=== PATIENT | female | born 1985 | race Caucasian/White ===

== ENCOUNTER 2022-06-01 09:25 | Outpatient (CLI) | payer OTHER, SELFPAY | END 2022-06-01 09:26 | disposition home or self-care (01) | LOC: NFLDREF 09:35 | PROVIDERS: Visit Provider Obstetrics & Gynecology | DX: O20.9 Hemorrhage in early pregnancy, unspecified (principal) | CPT/HCPCS: 84702; 86900; 86901 ==

== ENCOUNTER 2022-06-03 11:12 | Outpatient (CLI) | payer OTHER, SELFPAY ==
--- NOTE | 2022-06-03 11:15 | CRLHL7_ITS ---
For Patients: As a result of the Century Cures Act, medical imaging exams and procedure reports are released immediately into your electronic medical record. You may view this report before your referring provider. If you have questions, please contact your health care provider. INDICATION: Bleeding in early . TECHNIQUE: Ultrasound OB pelvis transvaginal. Real-time marte-scale imaging of the pelvis was performed. COMPARISON: None. FINDINGS: There is an intrauterine . Yolk sac is visualized. Fetus is present with a crown-rump length of 0.68 cm which corresponds to a 6 week 4 day gestational age and estimated date of delivery January 23, 2023. No heart activity detected. There is a small 17 x 16 x 2 mm perigestational hemorrhage. The ovaries are of normal size. There are no suspicious fluid collections noted in the cul-de-sac. IMPRESSION: A single intrauterine measures 6 weeks 4 days today`s measurements. No heart activity detected which is concerning for demise, however it still may be too early. Short-term follow-up ultrasound and beta HCG levels recommended for further evaluation. Small subchorionic hemorrhage. No other abnormality. Dictated by Khanh Celis MD @ 06/03/2022 12:26:19 PM (Electronically Signed)
== END 2022-06-03 11:13 | disposition home or self-care (01) ==
LOC: US 11:15
PROVIDERS: Visit Provider Obstetrics & Gynecology
DX: O20.9 Hemorrhage in early pregnancy, unspecified (principal); O36.4XX0 Maternal care for intrauterine death, not applicable or unspecified; Z3A.01 Less than 8 weeks gestation of pregnancy
CPT/HCPCS: 76817

== ENCOUNTER 2022-06-03 13:36 | Day surgery (SDC) | payer OTHER, SELFPAY ==
[2022-06-03] MEDS: LACTATED RINGERS 1000 ML 1,000 ML 100 ML IV (14:20)
[2022-06-03 14:27] VITALS: BP 110/72; PULSE 63; RESP 18; TEMP 37.2; O2SAT 100; BMI 31.6
[2022-06-03] MEDS: SODIUM CHLORIDE 0.9 % (FLUSH) 10 ML SYRINGE IVF (14:37)
--- NOTE | 2022-06-03 15:11 | W.ANESCHARGE ---
Anesthesia Charges Start Date/Time Anesthesia Start Date: 06/03/22 Anesthesia Start Time: 15:13 Stop Date/Time Anesthesia Stop Date: 06/03/22 Anesthesia Stop Time: 15:48
[2022-06-03] MEDS: CEFAZOLIN 2 GM in 0.9 % SODIUM CHLORIDE Mini-bag 100 ML IVPB (15:21)
[2022-06-03] MEDS: BUPIVACAINE 0.25% 30 ML INJECTION (15:30)
--- NOTE | 2022-06-03 15:42 | P.GYNPRC_ITS ---
Procedure Note Time Seen by Provider: 15:42 Date Seen: 06/03/22 Procedure Details: PREOPERATIVE DIAGNOSIS: Missed at 6 4/7 weeks gestation. POSTOPERATIVE DIAGNOSIS: Missed at 6 4/7 weeks gestation. PROCEDURE: Suction curettage. SURGEON: Mari. ANESTHESIA: Monitored anesthesia care and paracervical block. COMPLICATIONS: None. ESTIMATED BLOOD LOSS: Less than 10 mL. FINDINGS: Products of conception within uterine cavity. PROCEDURE NOTE: After obtaining informed consent, the patient was taken to the operating room where she received monitored anesthesia care. She was prepared and draped in the normal, sterile fashion in the dorsal lithotomy position. Two g of IV Ancef was administered intravenously. An examination was performed under anesthesia which demonstrated a normal sized anteverted uterus. An open- sided bivalve speculum was placed into the vagina and the cervix easily visualized. The anterior lip of the cervix was grasped with a single-tooth tenaculum for traction. A paracervical block was administered using a total of 20 mL of a 50:50 mixture of 1% lidocaine and 0.25% Marcaine, plain. A sound was gently inserted through the cervical os into the uterus to the level of the fundus. Sound length was 10 cm. The cervix was gently dilated using Hegar dilators to a # 8 dilator. An 8 mm rigid, curved suction cannula was advanced through the cervical os into the uterine cavity. Gentle suction was applied, and the uterine lining gently curetted. A small amount of products of conception and blood was removed. The suction cannula was removed. The uterine lining was gently explored using a sharp curette, and a gritty feel was felt throughout. One final pass was made with the suction cannula, no further tissue was recovered. All instruments were then removed. The patient tolerated the procedure well. Sponge, lap, and needle counts were reported as correct x2. Toradol 30 mg IV was administered by anesthesia. The patient was taken to the recovery room awake and in stable condition. PATHOLOGY SPECIMEN(S): Products of conception in saline for pathology evaluation and cytogenetics.
[2022-06-03 15:43] VITALS: BP 110/72; PULSE 63; RESP 14; TEMP 36.6; O2SAT 97
[2022-06-03 15:45] VITALS: BP 100/65; PULSE 73; RESP 16; O2SAT 97
--- NOTE | 2022-06-03 15:47 | W.ANESCHARGE ---
Anesthesia Charges Start Date/Time Anesthesia Start Date: 06/03/22 Anesthesia Start Time: 15:13 Stop Date/Time Anesthesia Stop Date: 06/03/22 Anesthesia Stop Time: 15:48
[2022-06-03 16:00] VITALS: BP 108/72; PULSE 69; RESP 14; TEMP 36.6; O2SAT 97
[2022-06-03 16:15] VITALS: BP 107/63; PULSE 67; RESP 16; O2SAT 100
[2022-06-03 16:30] VITALS: BP 109/65; PULSE 67; RESP 16; O2SAT 100
== END 2022-06-03 17:11 | disposition home or self-care (01) ==
PROVIDERS: Visit Provider Obstetrics & Gynecology
PROC: (CPT 59820; principal; 2022-06-03 15:45)
DX: O02.1 Missed abortion (principal)
CPT/HCPCS: 59820; 00940; 01965; 36415; 82232; 84439; 84443; 85610; 85613; 85730; 86147; 88233; 88262; 88305; J0690; J1885; J2250; J2405; J2704; J3010; J3490; J7120

== ENCOUNTER 2023-02-09 08:04 | Outpatient (CLI) | payer OTHER, SELFPAY | END 2023-02-09 08:05 | disposition home or self-care (01) | PROVIDERS: Visit Provider Advanced Practice Midwife | DX: Z34.91 Encounter for supervision of normal pregnancy, unspecified, first trimester (principal); Z3A.08 8 weeks gestation of pregnancy | CPT/HCPCS: 86592; 86703; 86704; 86706; 86762; 86787; 86803; 86850; 86900; 86901; 87086; 87340; 87491; 87591 ==

== ENCOUNTER 2023-02-09 13:48 | Outpatient (CLI) | payer OTHER, SELFPAY ==
--- NOTE | 2023-02-09 14:00 | CRLHL7_ITS ---
For Patients: As a result of the Cures Act, medical imaging exams and procedure reports are released immediately into your electronic medical record. You may view this report before your referring provider. If you have questions, please contact your health care provider. INDICATION: Dating and viability. LMP 12/14/2022. COMPARISON: None. TECHNIQUE: Real-time marte-scale imaging of the pelvis was performed. FINDINGS: Sonographic imaging demonstrates a single living intrauterine gestation. The embryo has a regular cardiac rate measuring 157 beats per minute. The embryo`s crown-rump length measurement of 2.1 cm corresponds to a gestational age of 8 weeks 5 days with a sonographic due date of 09/16/2023. There is a normal-appearing yolk sac. The placenta has not yet developed. No evidence of a perigestational hemorrhage. The right ovary measures 4.4 x 2.0 x 2.2 cm and the left ovary measures 2.3 x 1.3 x 1.6 cm. Corpus luteal cyst in the right ovary. No free fluid in the cul-de-sac. IMPRESSION: 1. Single living intrauterine gestation with crown rump length 2.1 cm which corresponds to a gestational age of 8 weeks 5 days with a sonographic due date of 09/16/2023. 2. The clinical gestational age by LMP is 8 weeks 1 day. Dictated by Mone Zazueta MD @ 02/09/2023 10:47:42 PM (Electronically Signed)
== END 2023-02-09 13:49 | disposition home or self-care (01) ==
LOC: US 13:49
PROVIDERS: Visit Provider Advanced Practice Midwife
DX: Z34.91 Encounter for supervision of normal pregnancy, unspecified, first trimester (principal); O09.521 Supervision of elderly multigravida, first trimester; Z3A.11 11 weeks gestation of pregnancy
CPT/HCPCS: 76817; 86703; 86706; 86803; 86850; 86900; 86901; 87086; 87340; 87491; 87591

== ENCOUNTER 2023-02-14 12:49 | Outpatient (CLI) | payer OTHER, SELFPAY ==
--- NOTE | 2023-02-14 13:00 | CRLHL7_ITS ---
For Patients: As a result of the Century Cures Act, medical imaging exams and procedure reports are released immediately into your electronic medical record. You may view this report before your referring provider. If you have questions, please contact your health care provider. INDICATION: Bleeding COMPARISON: 02/09/2023 TECHNIQUE: Real-time marte-scale imaging of the pelvis was performed. FINDINGS: Sonographic imaging demonstrates a single living intrauterine gestation. The embryo demonstrates a regular cardiac rate measuring 161 beats per minute. The embryo`s crown-rump length measurement of 2.4 cm corresponds to a gestational age of 9 weeks 0 days with a sonographic due date of 09/19/2023. There is a normal-appearing yolk sac. There are no gross abnormalities noted within the embryo at this early state of development. The gestational sac has a normal appearance. There is no evidence of a perigestational hemorrhage. Trace amount of fluid is present in the endocervix fear the amount of fluid within the sac appears appropriate for gestational age. The cervix is closed. The myometrium appears normal. The ovaries are of normal size. Corpus luteal cyst right ovary. There are no suspicious fluid collections noted in the cul-de-sac. IMPRESSION: Trace fluid in the endocervical canal. No subchorionic hemorrhage. Gestational age calculated at 9 weeks 0 days with a sonographic due date of 09/19/2023. Dictated by Yanick Mantilla MD @ 02/16/2023 8:58:55 AM (Electronically Signed)
== END 2023-02-14 12:50 | disposition home or self-care (01) ==
LOC: US 12:50
PROVIDERS: Visit Provider Obstetrics & Gynecology
DX: O20.9 Hemorrhage in early pregnancy, unspecified (principal); Z3A.09 9 weeks gestation of pregnancy
CPT/HCPCS: 76817

== ENCOUNTER 2023-04-05 13:46 | Outpatient (CLI) | payer OTHER, SELFPAY ==
--- NOTE | 2023-04-05 14:00 | CRLHL7_ITS ---
For Patients: As a result of the Century Cures Act, medical imaging exams and procedure reports are released immediately into your electronic medical record. You may view this report before your referring provider. If you have questions, please contact your health care provider. INDICATION: cx length check COMPARISON: 02/14/2023 TECHNIQUE: Transabdominal and transvaginal imaging of the pelvis performed including a dedicated transvaginal cervical measurement. FINDINGS: The cervix is closed and measures 3.6 cm. No funneling. For text position. heart rate 142 beats per minute. Placenta anterior. No previa. IMPRESSION: Closed cervix measuring 3.6 cm. Dictated by Yanick Mantilla MD @ 04/06/2023 10:36:35 AM (Electronically Signed)
== END 2023-04-05 13:47 | disposition home or self-care (01) ==
LOC: US 13:46
PROVIDERS: Visit Provider Obstetrics & Gynecology
DX: Z34.90 Encounter for supervision of normal pregnancy, unspecified, unspecified trimester (principal); O09.519 Supervision of elderly primigravida, unspecified trimester
CPT/HCPCS: 76815; 76817

== ENCOUNTER 2023-05-09 14:24 | Outpatient (CLI) | payer OTHER, SELFPAY | END 2023-05-09 14:25 | disposition home or self-care (01) | LOC: NFLDREF 05-15 08:52 | PROVIDERS: Visit Provider Obstetrics & Gynecology | DX: N96 Recurrent pregnancy loss (principal) | CPT/HCPCS: 85610; 85613; 85730; 86146 ==

== ENCOUNTER 2023-06-16 08:57 | Outpatient (CLI) | payer OTHER, SELFPAY ==
--- NOTE | 2023-06-16 09:15 | US_ITS ---
Patient: ONEAL GIMENEZ Facility:?[facility] R[facility] Patient ID:?[id number] Site Patient ID:?[id number]. Site :?1985 Study:?US-Breast Right RT BREAST LMT / DR. SOTELO TO READ-06/16/2023 10:30:01 AM Ordering Physician:?ARACELIS REVELES M.D. Final Report: CLINICAL HISTORY: : Right breast lump. COMPARISON: None TECHNIQUE: Real-time ultrasound imaging of right breast with imaging documentation. FINDINGS: Targeted sonogram of the right breast at 12 o`clock 4 cm from the nipple was performed. In this location, there is normal dense fibroglandular tissue with an incidental 4-mm simple cyst. At 7 o`clock 1 cm from the nipple, there is a distended duct containing internal debris without abnormal vascularity or nodule. IMPRESSION: 1. Benign fibrocystic changes of the right breast at 12 o`clock 4 cm from the nipple. No abscess. 2. Duct ectasia with intraductal debris in the right breast at 7 o`clock 1 cm from the nipple. RECOMMENDATIONS: Short-term follow-up ultrasound right breast regarding the intraductal debris in 6 months. Results and recommendations were discussed with the patient at the time of the exam. A lay language report of this examination will be provided to the patient. BI-RADS: 3. Probably benign. Dictated by Yanick Sotelo MD @ 06/16/2023 10:59:[address]/Dictated by: Yanick Sotelo MD @ 06/16/2023 11:00:00 AM Signed by:?Yanick Sotelo MD @06/16/2023 3:00:02 PM (Electronic Signature)
== END 2023-06-16 08:58 | disposition home or self-care (01) ==
LOC: US 08:58
PROVIDERS: Visit Provider Obstetrics & Gynecology
DX: N63.10 Unspecified lump in the right breast, unspecified quadrant (principal)
CPT/HCPCS: 76642

== ENCOUNTER 2023-07-03 13:40 | Outpatient (CLI) | payer OTHER, SELFPAY | END 2023-07-03 13:41 | disposition home or self-care (01) | LOC: NFLDREF 07-07 06:50 | PROVIDERS: Visit Provider Obstetrics & Gynecology | DX: O09.293 Supervision of pregnancy with other poor reproductive or obstetric history, third trimester (principal); Z3A.28 28 weeks gestation of pregnancy | CPT/HCPCS: 86592 ==

== ENCOUNTER 2023-08-01 12:49 | Outpatient (CLI) | payer OTHER, SELFPAY ==
--- NOTE | 2023-08-01 13:00 | US_ITS ---
Patient: ONEAL GIMENEZ Facility:?[facility] R[facility] Patient ID:?[id number] Site Patient ID:?[id number]. Site :?1985 Study:?US-OB Pelvis GROWTH-08/01/2023 1:53:06 PM Ordering Physician:RODRIGO REVELES Final Report: OBSTETRICAL ULTRASOUND LIMITED, 08/01/2023 INDICATION: Advanced maternal age. BENJA by LMP: 09/20/2023 Gestational age: 32 weeks 6 days COMPARISON: 06/16/2023, 05/26/2023, 05/01/2023. TECHNIQUE: Transabdominal obstetrical ultrasound. FINDINGS: Gestation: Single Cervix: Not visualized positioning: Vertex Amniotic fluid: 5.1 cm SDP Placenta position: Anterior heart rate: 138 bpm BIOMETRY: BPD: 8.5 cm, 34 weeks 3 days, 85% HC: 30.9 cm, 34 weeks 3 days, 55% AC: 32.4 cm, 36 weeks 2 days, greater than 97% FL: 6.6 cm, 33 weeks 6 days, 67% FL/AC Ratio: 20.32% HC/AC ratio: 0.9 EFW: 2638 grams, 5 lbs. 13 oz. age by this ultrasound: 34 weeks 5 days BENJA by this US: 09/07/2023 Percentile by BENJA: 97% IMPRESSION: 1) Single viable intrauterine . 2) Estimated weight is at the 97th percentile. 3) Abdominal circumference is greater than the 97th percentile. LYN CARR M.D. Body/Diagnostic Radiologist [email or web address] NJG:mynor D& Transcribed: 11:[address]/Dictated by: Lyn Carr MD @ 08/02/2023 8:40:00 AM Signed by:?Lyn Carr MD @08/02/2023 4:46:44 PM (Electronic Signature)
== END 2023-08-01 12:50 | disposition home or self-care (01) ==
LOC: US 12:50
PROVIDERS: Visit Provider Obstetrics & Gynecology
DX: O09.513 Supervision of elderly primigravida, third trimester (principal); Z3A.32 32 weeks gestation of pregnancy
CPT/HCPCS: 76816

== ENCOUNTER 2023-08-29 09:35 | Outpatient (CLI) | payer OTHER, SELFPAY ==
--- NOTE | 2023-08-29 09:45 | US_ITS ---
Patient: ONEAL GIMENEZ Facility:?[facility] R[facility] Patient ID:?[id number] Site Patient ID:?[id number] Site :?1985 Study:?US-OB Pelvis OB F/U GROWTH-08/29/2023 10:31:15 AM Ordering Physician:?ARACELIS REVELES M.D. Final Report: INDICATION: Third trimester scan, evaluate growth. Large for dates. COMPARISON: 08/01/2023 TECHNIQUE: Real time marte scale imaging of the fetus was performed. FINDINGS: Sonographic imaging demonstrates a single living intrauterine gestation. Fetus demonstrates a regular cardiac rate of 134 beats per minute. Fetus has a vertex position. The placenta lies anteriorly. Amniotic fluid volume appears normal and there is a single deepest vertical pocket: 7.5 cm. The estimated weight is 3927gm which lies at the greater than 97th %. On the prior OB ultrasound exam dated 08/01/2023 the estimated weight was at the 97th%. BPD 92nd percentile. HC 61st percentile. AC greater than 97th percentile. FL 75th percentile. The HC/AC ratio measures 0.90 range (0.87-1.06). There is adequate diastolic blood flow within the umbilical artery. The S/D ratio measures . IMPRESSION: Sonographic gestational age 39 weeks 0 days and a sonographic due date 09/05/2023. Sonographic age 15 days ahead of the clinical age. Estimated weight greater than 97th percentile. Abdominal circumference greater than 97th percentile. Dictated by Yanick Mantilla MD @ 08/29/2023 10:55:13 AM Signed by:?Yanick Mantilla MD @08/29/2023 10:55:13 AM (Electronic Signature)
== END 2023-08-29 09:36 | disposition home or self-care (01) ==
LOC: US 09:35
PROVIDERS: Visit Provider Obstetrics & Gynecology
DX: O36.63X0 Maternal care for excessive fetal growth, third trimester, not applicable or unspecified (principal); Z3A.39 39 weeks gestation of pregnancy
CPT/HCPCS: 76816; 87081; 87653

== ENCOUNTER 2023-09-13 05:08 | Inpatient (IN) | payer OTHER, SELFPAY ==
[2023-09-13] VITALS (32 sets, daily range): BP systolic 110–143; BP diastolic 68–87; PULSE 62–80; RESP 16–18; TEMP 36.3–37.1; O2SAT 97–99; BMI 38.3
[2023-09-13] MEDS: LACTATED RINGERS 1000 ML 1,000 ML 1200 ML IV ×2 (06:28→10:06)
--- NOTE | 2023-09-13 07:10 | P.LDBA_ITS ---
Subjective History of Present Illness Date Seen: 09/13/23 Narrative: Patient is being admitted to Labor and Delivery for elective primary with bilateral salpingectomy and excision of skin lesion. She is a 37 year old at 39 0/7 weeks gestation. Her full history and physical was dictated by Dr. Chavez on 08/28. Please see this for details. Specific Issues/Plans Partner: Peterson Call Dr. Chavez for labor # Hx of LEEP X 3 -cervical length at 16 weeks: Normal at 3.6 cm -Again normal at 35.5 mm at level 2 US # AMA -Age 38 just prior to delivery -[id number]: negative -Level II 05/01/23: cephalic, anterior placenta without previa, 3 vessel cord, normal fluid, EFW 90%, AC 80%, suboptimal visualization of spine, otherwise normal anatomy, cervical length 35.5 mm and closed. -Follow up level II 05/26/23: EFW 88%, AC 91%, anatomy evaluation completed and normal. -Growth US at 32 weeks: cephalic, SDP 5.1 cm, EFW 2638 g = 97%, BPD 85%, HC 55%, AC > 97%, FL 67%. -Weekly NST starting 36 weeks - at 39 weeks # Anxiety -previously treated with Xanax and Vistaril -Not currently taking anything. 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 # GERD. Omeprazole 20 mg daily prescribed 05/09/23. # Right breast lump. Mobile rubbery mass about 2.5 cm in greatest dimension at 7 o'clock on the right breast. * Breast US: Benign fibrocystic changes of the right breast at 12 o`clock 4 cm from the nipple. No abscess. Duct ectasia with intraductal debris in the right breast at 7 o`clock 1 cm from the nipple. * Repeat US in 6 months, already ordered # Low back pain, right sciatica. PT referral 07/17/23. * Flexeril 5-10 mg QHS prescribed 08/14 #Melanocytic nevi on abdomen. FamHx melanoma. Excision of skin lesion at time of . # Suspected macrosomia. Ultrasound 08/03/23: EFW 2638 g, >97%, BPD 85%, HC 55%, FL 67%. Cephalic, SDP 5.1, anterior placenta. * Repeat US for EFW at 36 weeks: cephalic, SDP 7.5, EFW 3927 g, > 97%. AC>97%, BPD 92%, HC 61%, FL 75% TDAP- 07/17/23 H&P 08/29/2023 Dr. Chavez OB - Problem Based A/P Additional Plan (1) macrosomia during : Status: Acute (2) Nevus: Status: Acute (3) : Status: Acute Delivery/Labor/Induction Plan Plan: Section OB Exam Physical Exam Vital signs: Temp Pulse BP 97.8 F 80 131/85 09/13/23 05:32 09/13/23 05:32 09/13/23 05:32 Narrative: General: Pleasant, no acute distress Heart: Regular rate and rhythm, no murmur or gallop Lungs: Clear to auscultation bilaterally Abdomen: Gravid NST with baseline of 120, reactive and reassuring
[2023-09-13] MEDS: CEFAZOLIN 2 GM INJ IVP (07:30)
[2023-09-13] MEDS: LACTATED RINGERS 1000 ML 1,000 ML 100 ML IV (07:30)
[2023-09-13 07:34] LABS: Basophils Percent Auto 0.3 % (0.0-3.0); Hematocrit 36.9 % (33.0-51.0); Immature Granulocytes Pct Auto 0.6 %; Lymphocytes Percent Auto 18.8 % (20-44); Mean Corpuscular HGB Conc 33 gm/dL (32-36); Mean Corpuscular Hemoglobin 31 pg (26-34); Mean Corpuscular Volume 95 fL (80-100); Monocytes Percent Auto 8.7 % (0.0-11.0); Neutrophils Percent Auto 70.6 % (42.0-72.0); RDW Coefficient of Variation % 13.4 % (11.5-15.5); Red Blood Count 3.89 m/uL (4.00-5.20); White Blood Count* 11.78 K/uL (4.50-11.00)
[2023-09-13 07:38] LABS: Slide Review Reflex Yes
--- NOTE | 2023-09-13 07:47 | SUR.OPER ---
PATIENT QUESTIONS ANSWERED SATISFACTORILY PREOPERATIVELY. PATIENT AMBULATED TO OR #4 WITH OB RN's. Patient positioned supine on OR #5 bed WITH A BUMP UNDER THE RIGHT. Perioperative team supported arms bilaterally on arm boards. ? Final approval of positioning by surgeon.
[2023-09-13] MEDS: KETOROLAC 30 MG/ML inj IVP ×3 (07:56→20:31)
[2023-09-13 08:18] LABS: Platelet Count* 150 K/uL (140-440)
[2023-09-13 08:19] LABS: Slide Review Acceptable Review (Acceptable)
--- NOTE | 2023-09-13 08:33 | P.OBPRC_ITS ---
Procedure Date of procedure: 09/13/23 Pre-op diagnosis: 39 weeks' gestation Suspected macrosomia Undesired fertility Abdominal nevus Post-op diagnosis: same Procedure Done: Global (Primary low-transverse section, bilateral salpingectomy, excision of abdominal nevus) Will [facility] bill your pro fee for this procedure?: Yes Blood Loss Measurement Type: QBL (276) Bakri Used: No IV fluids (mL): 1,100 Surgeon: Dr. Malou Chavez MD Deckhand Maintenance: TOMA Sr Anesthesia Type: Spinal Findings: 1. Female , cephalic lie, Apgars of 7 and 8, weight 4430 g, 9 lb and 12 oz 2. Filmy adhesions of the sigmoid epiploica to the left ovary. Otherwise normal appearance of bilateral tubes, ovaries, and uterus. Procedure Name: Primary low-transverse delivery Bilateral salpingectomy Excision of abdominal nevus Procedure Description: Patient was taken to the operating room with IV running. She received cefazolin in preoperative prophylaxis. Spinal anesthesia had previously been administered. Del Rosario catheter was inserted. She was prepped and draped in the usual sterile fashion. Anesthesia was tested and found to be adequate. A low-transverse skin incision was made with a scalpel and carried through to the underlying layer of fascia with the scalpel. The subcutaneous fat was dissected off the underlying fascia with Bovie. The fascia was nicked in the midline with a scalpel, and this incision was extended laterally with scissors. The rectus muscles were in the midline. Peritoneum was identified and entered sharply and the opening was extended bluntly. Bovie was used to widen this opening laterally. Elier O retractor was inserted and tightened down, providing excellent visualization of the lower uterine segment. The bladder reflection was found to be well below the planned site for hysterotomy. Low-transverse uterine incision was made with a scalpel. Incision was widened bluntly. The 's head was grasped through the hysterotomy and delivered with the help of fundal pressure. The remainder of the body delivered without incident. Cord was clamped and cut after 30 seconds. was handed off to attending nurses. The placenta was delivered with gentle traction on the cord. The uterus was exteriorized and cleansed of all clots and debris with the dry lap pad. The hysterotomy was reapproximated with 0 Vicryl in a running, locked fashion. Second layer of the same suture was used in imbricating fashion to obtain hemostasis. The adnexa were examined and noted to be normal in appearance. The right fallopian tube was grasped in its mid isthmic portion with a Cranston clamp. The LigaSure exact device was used to cauterize and transect the blood supply laterally. Dissection was carried laterally to medially through the broad ligament, in the right tube was amputated at the cornua. This procedure was repeated on the patient's left side, with the addition of some dissection of filmy adhesions around the fimbriated edge of the fallopian tube. Hemostasis was noted bilaterally. The uterus was returned to the abdomen. The cul-de-sac and gutters were cleansed with dampened laparotomy sponge, removing any further clots and debris. The Elier O retractor was removed. The hysterotomy was reexamined and found to be hemostatic. The peritoneum was reapproximated with 2 0 Vicryl in a running fashion. The rectus muscles were examined and found to be hemostatic. The fascia was reapproximated with 0 Vicryl in a running fashion. Subcutaneous fat was irrigated and Bovie used on oozing vessels. The subcutaneous fat was reapproximated with 2 0 plain gut suture in an interrupted fashion. The skin was closed with a subcuticular st itch of 4-0 Vicryl. Surgical glue was applied above this. The 2 mm nevus located in the right lateral abdomen was grasped with Adson's forceps and an elliptical incision was made with a scalpel surrounding this. Specimen was sent to pathology. The skin defect was closed with 2 subcuticular sutures of 4-0 Monocryl. Surgical glue was also applied above this. Patient tolerated procedure well was taken to recovery area in stable condition. Pathology: specimen obtained, sent to pathology (Bilateral fallopian tubes, abdominal nevus) Surgery Debrief Performed: Yes Surgery Debrief Comment: Surgical debrief was carried out at the end of the procedure, confirming my request to send pathology specimens as noted above Condition: stable Disposition: floor Infant total score - 1 minute: 7 total score - 5 minute: 8
--- NOTE | 2023-09-13 09:00 | W.ANESCHARGE ---
Anesthesia Charges Start Date/Time Anesthesia Start Date: 09/13/23 Anesthesia Start Time: 07:17 Stop Date/Time Anesthesia Stop Date: 09/13/23 Anesthesia Stop Time: 08:51
--- NOTE | 2023-09-13 09:01 | W.PM.NB ---
Nerve Block Nerve Block Time Seen by Provider: 08:40 Date Seen: 09/13/23 Type of block requested by surgeon for post-operative analgesia: TAP Side: bilateral Time out performed: Yes Verification of patient name: Yes Verification of date of : Yes Site marking: site marked Name of person performing procedure: Good Sujatha Continuous monitoring Was continuous monitoring of O2 sat, B/P, software reliability engineer, recorded every 15 minutes?: Yes Procedure Checklist: sterile prep, needles and gloves Ultrasound guided. Images saved: Yes Medications given in 5ml increments after negative aspiration: Marcaine %: 0.25 mL: 30 Needle gauge: 21 and Exparel mL: 10 Needle gauge: 21 Patient tolerated procedure well: Yes Additional comments: Injected in 5mL increments after negative aspiration Block Charges Block Charge (with Pro Fee): TAP Bilateral Use of Ultrasound Machine for Block: Yes- US Guidance/pain block
--- NOTE | 2023-09-13 09:33 | W.ANESCHARGE ---
Anesthesia Charges Start Date/Time Anesthesia Start Date: 09/13/23 Anesthesia Start Time: 07:17 Stop Date/Time Anesthesia Stop Date: 09/13/23 Anesthesia Stop Time: 08:51
[2023-09-14] VITALS (11 sets, daily range): BP systolic 102–122; BP diastolic 66–79; PULSE 74–90; RESP 16–20; TEMP 36.6–37.1; O2SAT 97–99
[2023-09-14] MEDS: ACETAMINOPHEN 500 MG TABLET 1000 MG PO ×2 (01:29→18:21)
[2023-09-14] MEDS: KETOROLAC 30 MG/ML inj IVP ×3 (02:42→14:31)
[2023-09-14] MEDS: DOCUSATE SODIUM 100 MG CAPSULE PO (08:49)
--- NOTE | 2023-09-14 12:50 | P.OBPN_ITS ---
OB - PN:Subj Subjective Time Seen by Provider: 08:00 Date Seen: 09/14/23 Patient comments OB post-: no complaints, pain well controlled and flatus present [place] status: and doing well (IV for blood sugar control) [place] feeding status: exclusively Narrative: Flores is a 37 y.o. who was admitted to [facility] for primary C/S for concerns of macrosomia.? She had an uncomplicated primary .? ? The patient feels well.? The pain is well controlled with current medications.? She has no new complaints.? She is breast feeding and reports things are going well.? the patient has done well.? Vitals have been stable.? She has remained afebrile.? Has a good appetite, is tolerating a general diet.? She is voiding without difficulty.? She is passing gas and has not had a bowel movement.? She is ambulating and denies any dizziness.? Has Small amount of rubra lochia.? OB - PN: Obj Exam Physical Exam: Vital signs: Temp Pulse Resp BP Pulse Ox O2 Del Method 97.9 F 78 20 105/71 98 Room Air 09/14/23 08:31 09/14/23 08:31 09/14/23 08:31 09/14/23 08:31 09/14/23 08:31 09/14/23 08:31 Narrative: GENERAL APPEARANCE:? normal affect, alert, no distress MOOD:? appropriate CHEST:? clear to auscultation HEART:? regular rate and rhythm ABDOMEN:? soft, non-tender the uterine fundus is firm At Umbilicus, Midline and is appropriate for the stage of recovery. EXTREMITIES:? normal and trace edema Incision: Dressing clean dry intact, due to be removed today. Urinary Catheter Management: Urethral: Cath placed during this visit: yes Urethral indwelling: No Reason for continuing: surgical procedure Insertion date: 09/13/23 Insertion time: 07:32 OB - PN: A/P Delivery Assessment and Plan (1) care following delivery: Status: Acute (2) Lactating mother: Status: Acute (3) macrosomia during : Status: Acute (4) Nevus: Status: Acute (5) : Status: Acute Plan day: 1 Plan: routine care Comments: Assessment/Plan?G 4 P 1 status post uncomplicated primary .? ?? 1.? Continue route PP cares? 2.? .? May see if desired? 3.? Anticipate discharge home tomorrow or the following day per pt preference? ?
--- NOTE | 2023-09-14 14:10 | PC.NURSE ---
Nursing Care Hours: [id number] Pt this shift calm and cooperative with cares, alert and oriented. Pain lower abdomen 6/10 treated per eMAR. PT drinking and voiding, reports passing gas. Walking independently in the room. Lower abdomen incision bandage CDI. Pt attempting to breast feed baby. Baby is latching but not maintaining. Mom requesting staff supplement with formula d/t baby appears to be getting frustrated.
[2023-09-14] MEDS: IBUPROFEN 600 MG TABLET PO (20:58)
[2023-09-15] MEDS: ACETAMINOPHEN 500 MG TABLET 1000 MG PO ×4 (00:04→18:55)
[2023-09-15] MEDS: IBUPROFEN 600 MG TABLET PO ×4 (02:52→21:27)
[2023-09-15 05:12] LABS: Rapid Plasma Reagin (RPR) Non Reactive (Non Reactive)
[2023-09-15 08:08] VITALS: BP 132/88; PULSE 70; RESP 20; TEMP 36.6; O2SAT 98
[2023-09-15] MEDS: DOCUSATE SODIUM 100 MG CAPSULE PO ×2 (09:15)
--- NOTE | 2023-09-15 09:52 | PM.OBPNVD1 ---
Documented by User: Yohana Sorensen CNM 09/15/23 10:01 OB - PN:Subj Subjective Date Seen: 09/15/23 Patient comments OB post-: no complaints, pain well controlled, tolerating diet and flatus present [place] status: (with supplementation due to unstable blood sugars. Coping well. Baby is in the normal nursery with close observation. ) feeding status: exclusively OB - PN: Obj Exam Physical Exam: Vital signs: Temp Pulse Resp BP Pulse Ox O2 Del Method 97.8 F 70 20 132/88 98 Room Air 09/15/23 08:08 09/15/23 08:08 09/15/23 08:08 09/15/23 08:08 09/15/23 08:08 09/15/23 08:08 Narrative: GENERAL APPEARANCE:? normal affect, alert, no distress MOOD:? appropriate CHEST:? clear to auscultation HEART:? regular rate and rhythm ABDOMEN:? soft, non-tender the uterine fundus is At Umbilicus, Midline and is appropriate for the stage of recovery. EXTREMITIES:? normal and minimal edema Incision: Healing well, no surrounding erythema, abnormal induration or discharge Urinary Catheter Management: Urethral: Cath placed during this visit: yes Urethral indwelling: No Reason for continuing: surgical procedure Insertion date: 09/13/23 Insertion time: 07:32 OB - PN: Obj Data Labs Labs: Laboratory Results - last 24 hr 09/13/23 06:20 RPR Screen Non Reactive OB - PN: A/P Delivery Assessment and Plan (1) care following delivery: Status: Acute Assessment and Plan: Flores is a 37 y.o. who was admitted to [facility] for elective scheduled for macrosomia with BTL. ?She had an uncomplicated .?The patient feels well. ?The pain is well controlled with current medications. ?She has no new complaints. ?She is breast feeding and reports things are going well.? the patient has done well.? Vitals have been stable.? She has remained afebrile.? Has a good appetite, is tolerating a general diet. ?She is voiding without difficulty.? She is passing gas and has had a bowel movement.? She is ambulating and denies any dizziness.? Has scant amount of rubra lochia. ? (2) Lactating mother: Status: Acute Assessment and Plan: Continue routine PP support (3) Status post bilateral salpingectomy: Status: Acute Plan Plan: routine care Documented by User: Susanne Lay CNM 09/15/23 18:34 OB - PN:Subj Subjective Narrative: Flores is a 37 y.o. who was admitted to [facility] & [facility] for elective scheduled for macrosomia with BTL. ?She had an uncomplicated .?The patient feels well. ?The pain is well controlled with current medications. ?She has no new complaints. ?She is breast feeding and reports things are going well.? the patient has done well.? Vitals have been stable.? She has remained afebrile.? Has a good appetite, is tolerating a general diet. ?She is voiding without difficulty.? She is passing gas and has had a bowel movement.? She is ambulating and denies any dizziness.? Has scant amount of rubra lochia. ? OB - PN: Obj Exam Urinary Catheter Management: Urethral: Cath placed during this visit: yes OB - PN: A/P Delivery Assessment and Plan (1) care following delivery: Status: Acute (2) Lactating mother: Status: Acute (3) Status post bilateral salpingectomy: Status: Acute Plan day: 1 Comments: plan: Anticipate discharge tomorrow , may see if needed Hgb 12.0.
[2023-09-15 19:28] VITALS: BP 129/84; PULSE 74; RESP 20; TEMP 37; O2SAT 98
[2023-09-16] MEDS: ACETAMINOPHEN 500 MG TABLET 1000 MG PO ×2 (01:35→08:02)
[2023-09-16] MEDS: IBUPROFEN 600 MG TABLET PO ×2 (03:19→10:58)
[2023-09-16 03:21] VITALS: BP 130/83; PULSE 70; RESP 18; TEMP 36.9; O2SAT 98
--- NOTE | 2023-09-16 05:51 | PC.NURSE ---
Shift note: Mother alert and oriented, demonstrate appropriate behavior. Ambulate independently in room. Minimal pain reported, however, pt wants to stay on top of pain and request PRN Tylenol and Ibuprofen on time. No heavy lochia reported. Vitally stable.
[2023-09-16 07:57] VITALS: BP 127/84; PULSE 72; RESP 16; TEMP 36.8; O2SAT 97
[2023-09-16] MEDS: DOCUSATE SODIUM 100 MG CAPSULE PO (08:02)
--- NOTE | 2023-09-16 09:10 | P.DS_ITS ---
DS: Providers Provider Time Seen by Provider: 08:15 Date Seen: 09/16/23 Date of admission: 09/13/23 05:08 Primary care physician: Malou Chavez MD Admitting Clinician: Malou Chavez MD Attending Physician on discharge: Hernando Talavera MD Exam Narrative: Exam Narrative: Vital signs reviewed and within normal limits. General: Alert and oriented, no acute distress Psych: Appropriate mood and affect Abdomen: Soft, nondistended and non-tender. Fundus at 1 below umbilicus, nontender. Incision is well approximated and intact. No erythema or ecchymosis, no drainage. Superficial surgical glue noted. Lower extremities: Trace bilateral edema. No calf tenderness, erythema or swelling. Right medial thigh at area of discomfort was examined - no skin changes, erythema, rash/lesion or swelling noted. Const: Vital Signs, click to edit/add: Vital Signs - 24 hr 09/15/23 19:28 09/16/23 03:21 09/16/23 07:57 Temperature 98.6 F 98.5 F 98.3 F Pulse Rate [Pulse Oximeter] 74 70 72 Respiratory Rate 20 18 16 Blood Pressure [Ri ght Arm] 129/84 130/83 127/84 Pulse Oximetry 98 98 97 Oxygen Delivery Me thod Room Air Room Air Room Air OB - DS: Summary Hospital Course Hospital Course: The patient is a 37 year old G 4 P 1 at 39 weeks gestation that was admitted to the Center on 09/13/23 for primary delivery. She had an uncomplicated delivery. She delivered a viable female . She is pumping and bottle feeding. the patient has done well. Flores is feeling well this morning with no acute concerns. Pain is well controlled, though she does have some lower abdominal discomfort. Lochia is minimal. She appetite at baseline, no nausea/vomiting. No difficulty with urination. Passing gas and bowel movement x1. Ambulates without dizziness or lightheadedness. She does have some right inner thigh discomfort, where she noted it initially felt like a prick or like something on her pants was catching her skin. Now the area feels a bit more bruised but has no associated skin changes, swelling or erythema. No history VTE. Patient notes history of intolerance of oxycodone. She would be interested in small Rx for tramadol if needed for breakthrough. This has previously been well tolerated. Peripartum Data Procedures: Procedures Operation Date: 09/13/23 07:15 Actual Procedure Side Surgeon p Primary Section DELIVERY WITH BILATERAL SALPINGECTOMY, EXCISION OF NEVUS OF THE ABDOMEN Malou Chavez MD [place] Infant Gender: Female Time Spent with Patient Time attestation: Total time spent providing and/or coordinating discharge services: Discharge Plan Discharge Disposition: Home, Self-Care Date of Admission: 09/13/23 05:08 Primary Care Provider: Malou Chavez Condition: Stable Anticipated Discharge Date/Time: 09/16/23 09:17 Discharge Medications: New tramadol 50 mg tablet 50 mg PO Q8H PRN (Reason: pain) Qty: 5 0RF Continued albuterol 90 mcg/actuation aerosol 90 mcg inhalation .4-6 hours PRN DHA 200 mg capsule 200 mg PO DAILY cyclobenzaprine 5 mg tablet See Rx Instructions PO QHS PRN (Reason: muscle spasm) Qty: 20 0RF Rx Instructions: 5-10 mg orally every day at bedtime PRN; ferrous sulfate [Feosol] 325 mg (65 mg iron) tablet 325 mg PO QDAY omeprazole 20 mg capsule,delayed release(DR/EC) 20 mg PO QDAY Qty: 90 1RF Discharge Orders: Discharge Order (Routine); Ordered 09/16/23 Ordered By: Jade Talavera Additional Instructions: Discharge instructions were reviewed with the patient including signs and symptoms of infection and home going medications Lifting Restrictions: 20 pounds for 6 weeks No not submerge incision under water X 2 weeks? Nothing vaginally for 6 weeks: no tampons or intercourse Do not drive while taking narcotic pain medication(s) Off Work or School for 8 weeks Symptoms to report to doctor: * Bleeding that saturates more than one pad per hour * Passing clots larger than the size of a golf ball * Pain not relieved by prescribed medication * Fever above 100.4 degrees Fahrenheit * A foul vaginal odor * Difficulty in emotions, mood, and functions * Thoughts of hurting yourself and/or * Painful, reddened area in your breast * Any drainage, redness, or tenderness in your IV/epidural site * Severe headache that doesn't improve after taking medications * Changes in vision, including temporary loss of vision, blurred vision, and/or light sensitivity * Upper abdominal pain (usually under ribs on the right side) * Decrease in urination or painful, frequent urinating * Chest pain * Shortness of breath * Tenderness or pain with redness and/swelling in the calf(s) of your leg Optional 2-week visit: incision check, discuss infant feeding concerns, review control options and screen for anxiety/depression. 6-week visit for an annual exam. consultation services are available to all mothers and babies for the first year after delivery.? To make an appointment, please call [phone]. Follow Up Appointments: Malou Chavez MD [Primary Care Provider] - Forms: [employer] Info Instructions
== END 2023-09-16 11:48 | disposition home or self-care (01) | DRG 785 ==
PROVIDERS: Admitting Provider Obstetrics & Gynecology; PCP Obstetrics & Gynecology; Visit Provider Obstetrics & Gynecology
PROC: 10D00Z1 Extraction of Products of Conception, Low, Open Approach (ICD-10-PCS; CPT 59514; principal; 2023-09-13 07:15)
DX: O36.63X0 Maternal care for excessive fetal growth, third trimester, not applicable or unspecified (principal); Z3A.39 39 weeks gestation of pregnancy; Z37.0 Single live birth; O99.344 Other mental disorders complicating childbirth; F41.9 Anxiety disorder, unspecified; N96 Recurrent pregnancy loss; D22.9 Melanocytic nevi, unspecified; K21.9 Gastro-esophageal reflux disease without esophagitis; J45.909 Unspecified asthma, uncomplicated; O75.89 Other specified complications of labor and delivery; M54.50 Low back pain, unspecified; G89.18 Other acute postprocedural pain; Z30.2 Encounter for sterilization
CPT/HCPCS: 01961; 36415; 64488; 76942; 85018; 85025; 86592; 86850; 86900; 86901; 88302; 88305; A9270; C9290; J0665; J0690; J1100; J1885; J2274; J2371; J2405; J2590; J7120

== ENCOUNTER 2023-09-20 23:24 | Emergency (ER) | payer OTHER, SELFPAY ==
[2023-09-20 23:40] VITALS: BP 112/81; PULSE 71; RESP 20; TEMP 36.9; O2SAT 98; BMI 33.3
[2023-09-20 23:55] VITALS: O2SAT 98
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
[2023-09-21] VITALS (22 sets, daily range): BP systolic 128–148; BP diastolic 77–80; PULSE 53–75; RESP 16; O2SAT 96–99
--- NOTE | 2023-09-21 00:01 | CRLHL7_ITS ---
For Patients: As a result of the Cures Act, medical imaging exams and procedure reports are released immediately into your electronic medical record. You may view this report before your referring provider. If you have questions, please contact your health care provider. INDICATION: Shortness of breath TECHNIQUE: Chest radiograph 2 views COMPARISON: None FINDINGS: Mediastinum: The mediastinum is normal in appearance. The heart silhouette is normal in size and morphology. Lung: Small lung volumes are present with mild bibasilar atelectasis. No sign of pleural effusion seen. No pneumothorax is identified. Bone and Soft tissue: Unremarkable for age. IMPRESSION: 1. Small lung volumes are present with mild bibasilar atelectasis. Dictated by Jw John MD @ 09/21/2023 2:38:43 AM Dictated by: Jw John MD @ 09/21/2023 02:38:45 (Electronically Signed)
[2023-09-21 00:21] LABS: Basophils Absolute Auto 0.02 K/uL (0.00-0.30); Basophils Percent Auto 0.3 % (0.0-3.0); Eosinophils Absolute Auto 0.13 K/uL (0.00-0.50); Eosinophils Percent Auto 1.7 % (0.0-7.0); Hematocrit 33.8 % (33.0-51.0); Hemoglobin* 10.8 gm/dL (12.0-16.0); Immature Granulocytes Abs Auto 0.04 K/uL (0.00-0.30); Immature Granulocytes Pct Auto 0.5 %; Lymphocytes Absolute Auto 1.61 K/uL (0.90-2.90); Lymphocytes Percent Auto 21.3 % (20-44); Mean Corpuscular HGB Conc 32 gm/dL (32-36); Mean Corpuscular Hemoglobin 31 pg (26-34); Mean Corpuscular Volume 96 fL (80-100); Monocytes Percent Auto 11.6 % (0.0-11.0); Neutrophils Absolute Auto 4.89 K/uL (1.7-7.0); Neutrophils Percent Auto 64.6 % (42.0-72.0); Platelet Count* 211 K/uL (140-440); RDW Coefficient of Variation % 13.2 % (11.5-15.5); Red Blood Count 3.51 m/uL (4.00-5.20); White Blood Count* 7.57 K/uL (4.50-11.00)
[2023-09-21 00:24] LABS: Slide Review Reflex No
[2023-09-21 00:31] LABS: Albumin* 3.6 g/dL (3.3-5.0); Chloride* 106 mmol/L (96-114)
[2023-09-21 00:32] LABS: Potassium* 3.9 mmol/L (3.6-5.1); Sodium* 138 mmol/L (135-149)
[2023-09-21 00:34] LABS: Est. Creatinine Clearance* 67.96; Estimated Glomerular Filt Rate 73 ml/min
[2023-09-21 00:35] LABS: Alanine Aminotransferase* 23 U/L (4-35); Alkaline Phosphatase* 107 U/L (40-150); Anion Gap 4 mEq/L (7-15); Aspartate Amino Transferase* 24 U/L (12-35); Bilirubin Direct* 0.3 mg/dL (0.0-0.5); Bilirubin Total* 0.5 mg/dL (0.1-1.5); Blood Urea Nitrogen* 15 mg/dL (5-24); Calcium* 8.8 mg/dL (8.4-10.6); Carbon Dioxide* 28 mmol/L (20-32); Glucose* 110 mg/dL (60-115); Lipase* 173 U/L (23-300); Total Protein* 6.4 g/dL (6.0-8.3)
[2023-09-21 00:38] LABS: C Reactive Protein* 0.8 mg/dL (0.5-1.0)
--- NOTE | 2023-09-21 00:57 | CRLHL7_ITS ---
For Patients: As a result of the Century Cures Act, medical imaging exams and procedure reports are released immediately into your electronic medical record. You may view this report before your referring provider. If you have questions, please contact your health care provider. INDICATION: Short of breath. COMPARISON: Radiographs 09/21/2023 TECHNIQUE: CT angiogram chest with contrast, pulmonary embolism protocol. Multiplanar axial, coronal, and sagittal reformats are included. MIP images to improve detection of pulmonary emboli are included. Intravenous contrast: 95 mL Isovue 370. FINDINGS: PE: Well-timed contrast bolus. No pulmonary emboli. Normal caliber main pulmonary artery. Normal sized right heart chambers. Trace reflux of contrast below the diaphragm. Airway: Expiratory appearance of the trachea. No tracheal or central endobronchial lesion. No bronchiectasis or bronchial wall thickening. Lungs: Good lung volumes. There is a 4 millimeter nodule in the right middle lobe on series 7, image 103. Smaller peripheral nodules in the anterior right middle lobe on images 94 and 99. There is a 3 millimeter nodule in the right lower lobe on series 7, image 81. no consolidations. Normal appearance of the pulmonary interstitium. Pleura: No pleural effusion. No pneumothorax. Lymph nodes: No thoracic adenopathy. Mediastinum: No pneumomediastinum. No mass. Heart and great vessels: No pericardial effusion. Normal cardiac chamber size. No atherosclerotic plaques. No aortic aneurysm. Chest wall: Normal. No masses. Upper abdomen: Normal. Bones: No fractures. No focal bone lesions. IMPRESSION: 1. No pulmonary embolism. 2. No acute pulmonary parenchymal findings. 3. There are a few small pulmonary nodules measuring up to 4 millimeters. According to the Fleischner society criteria, if the patient is low risk for primary pulmonary malignancy, there is no need for further follow-up imaging. If the patient is high risk, choice can be made between no follow-up or follow-up CT in 12 months. Please note that all CT scans at this facility use dose modulation, iterative reconstruction, and/or weight-based dosing when appropriate to reduce radiation dose to as low as reasonably achievable. Dictated by Susanne Ceballos MD @ 09/21/2023 6:30:58 AM (Electronically Signed)
[2023-09-21 01:01] LABS: Troponin I* < 0.01 ng/mL (0.01-0.04)
[2023-09-21] MEDS: HYDROCORTISONE SOD SUCCINATE 50 MG/ML inj 200 MG IVP (04:24)
[2023-09-21] MEDS: diphenhydrAMINE 25 MG CAPSULE 50 MG PO (04:24)
== END 2023-09-21 06:42 | disposition home or self-care (01) ==
PROVIDERS: Family Medicine; Emergency Provider Emergency Medicine
DX: R07.9 Chest pain, unspecified (principal)
CPT/HCPCS: 36415; 71046; 71275; 80048; 80076; 83690; 84484; 85025; 85379; 86140; 93005; 94761; 96374; 99284; 99285; A9270; J1720; Q9967

== ENCOUNTER 2024-01-17 10:39 | Outpatient (CLI) | payer OTHER, SELFPAY ==
--- NOTE | 2024-01-17 10:45 | CRLHL7_ITS ---
For Patients: As a result of the Cures Act, medical imaging exams and procedure reports are released immediately into your electronic medical record. You may view this report before your referring provider. If you have questions, please contact your health care provider. DIGITAL DIAGNOSTIC BILATERAL MAMMOGRAM USING TOMOSYNTHESIS AND COMPUTER-AIDED DETECTION RIGHT BREAST ULTRASOUND CLINICAL HISTORY: RIGHT breast lump. COMPARISON: Ultrasound RIGHT breast 06/16/2023. TECHNIQUE: Digital BILATERAL mammogram in four projections with computer-aided detection. Tomosynthesis was used in this interpretation. Real-time ultrasound imaging of RIGHT breast with imaging documentation. BREAST COMPOSITION: The breasts are heterogeneously dense, which may obscure small masses. FINDINGS: 3D CC/MLO BILATERAL mammogram images submitted bilaterally. Benign punctate calcifications are present bilaterally. No suspicious mass or architectural distortion. Targeted RIGHT breast ultrasound 12 o`clock 7 cm from the nipple performed. In this location, a simple cyst is present measuring 3 x 3 x 3 millimeters, similar to the prior ultrasound. Normal breast tissue is present at 7 o`clock 1 cm from the nipple. IMPRESSION: No suspicious findings. RECOMMENDATIONS: Annual BILATERAL screening mammography. Results and recommendations discussed with the patient. BI-RADS Category 2: Benign A lay language report of this examination will be provided to the patient. Dictated by Yanick Mantilla MD @ 01/17/2024 12:39:55 PM /Dictated by: Yanick Mantilla MD @ 01/17/2024 12:39:00 PM (Electronically Signed)
--- NOTE | 2024-01-17 11:15 | CRLHL7_ITS ---
For Patients: As a result of the Cures Act, medical imaging exams and procedure reports are released immediately into your electronic medical record. You may view this report before your referring provider. If you have questions, please contact your health care provider. PLEASE SEE DIGITAL DIAGNOSTIC BILATERAL MAMMOGRAM PERFORMED SAME DAY CRL:[email or web address] [email or web address]/Dictated by: Yanick Mantilla MD @ 01/17/2024 12:34:00 PM (Electronically Signed)
== END 2024-01-17 10:40 | disposition home or self-care (01) ==
LOC: MAMMO 10:40
PROVIDERS: Visit Provider Obstetrics & Gynecology
DX: N63.10 Unspecified lump in the right breast, unspecified quadrant (principal)
CPT/HCPCS: 76642; 77066; G0279

== ENCOUNTER 2024-03-28 15:49 | Outpatient (CLI) | payer OTHER, SELFPAY | END 2024-03-28 15:50 | disposition home or self-care (01) | PROVIDERS: Visit Provider Family Medicine | DX: Z13.220 Encounter for screening for lipoid disorders (principal); Z13.1 Encounter for screening for diabetes mellitus | CPT/HCPCS: 80061; 82947 ==

== ENCOUNTER 2024-11-20 09:30 | Outpatient (CLI) | payer OTHER, SELFPAY ==
--- NOTE | 2024-11-20 09:45 | CRLHL7_ITS ---
For Patients: As a result of the Century Cures Act, medical imaging exams and procedure reports are released immediately into your electronic medical record. You may view this report before your referring provider. If you have questions, please contact your health care provider. DIGITAL DIAGNOSTIC BILATERAL MAMMOGRAM USING TOMOSYNTHESIS AND COMPUTER-AIDED DETECTION RIGHT BREAST ULTRASOUND CLINICAL HISTORY: RIGHT breast lump. COMPARISON: 01/17/2024. TECHNIQUE: Digital BILATERAL mammogram in four projections with computer-aided detection. Tomosynthesis was used in this interpretation. Real-time ultrasound imaging of RIGHT breast with imaging documentation. BREAST COMPOSITION: The breasts are heterogeneously dense, which may obscure small masses. FINDINGS: 3D CC/MLO BILATERAL mammogram images submitted. Benign calcifications are present bilaterally. No architectural distortion. No adenopathy. Targeted RIGHT breast ultrasound performed in the area of concern at 11 o`clock 4 cm from the nipple. Mild fibrocystic change noted. Normal dense fibroglandular tissue. No suspicious mass. IMPRESSION: No evidence of malignancy. RECOMMENDATIONS: Routine screening mammography. A lay language report of this examination will be provided to the patient. BI-RADS Category 2: Benign Dictated by Yanick Mantilla MD @ 11/20/2024 10:38:23 AM jj/Dictated by: Yanick Mantilla MD @ 11/20/2024 10:38:00 AM (Electronically Signed)
--- NOTE | 2024-11-20 10:15 | CRLHL7_ITS ---
For Patients: As a result of the Cures Act, medical imaging exams and procedure reports are released immediately into your electronic medical record. You may view this report before your referring provider. If you have questions, please contact your health care provider. SEE DIGITAL DIAGNOSTIC BILATERAL MAMMOGRAM PERFORMED SAME DAY CRL:[email or web address] [email or web address]/Dictated by: Yanick Mantilla MD @ 11/20/2024 10:50:00 AM (Electronically Signed)
== END 2024-11-20 09:31 | disposition home or self-care (01) ==
LOC: MAMMO 09:31
PROVIDERS: PCP Family Medicine; Visit Provider Obstetrics & Gynecology
DX: N63.10 Unspecified lump in the right breast, unspecified quadrant (principal)
CPT/HCPCS: 76642; 77066; G0279

== ENCOUNTER 2025-02-14 10:33 | Outpatient (CLI) | payer OTHER, SELFPAY ==
--- NOTE | 2025-02-14 10:45 | CRLHL7_ITS ---
For Patients: As a result of the Century Cures Act, medical imaging exams and procedure reports are released immediately into your electronic medical record. You may view this report before your referring provider. If you have questions, please contact your health care provider. CLINICAL HISTORY: LEFT breast lump. COMPARISON: 11/20/2024, 01/17/2024 TECHNIQUE: Digital LEFT mammogram in 2 projections with computer-aided detection. Tomosynthesis was used in this interpretation. Real-time ultrasound imaging of LEFT breast with imaging documentation. BREAST COMPOSITION: The breasts are heterogeneously dense, which may obscure small masses. FINDINGS: 3D cc/MLO left breast mammogram images submitted. No suspicious masses or architectural distortion. No suspicious calcifications or adenopathy. Targeted left breast ultrasound performed in the area of concern at 2 o`clock 3 cm from the nipple. Normal fibroglandular tissue is present. No fibrocystic change or mass. IMPRESSION: No suspicious findings. No evidence of malignancy. RECOMMENDATIONS: Routine screening mammography. A lay language report of this examination will be provided to the patient. BI-RADS Category 2. Benign. Dictated by Yanick Mantilla MD @ 02/14/2025 11:42:15 AM (Electronically Signed)
--- NOTE | 2025-02-14 11:15 | CRLHL7_ITS ---
For Patients: As a result of the Century Cures Act, medical imaging exams and procedure reports are released immediately into your electronic medical record. You may view this report before your referring provider. If you have questions, please contact your health care provider. PLEASE SEE LEFT DIAGNOSTIC MAMMOGRAM OF SAME DAY. CRL:[email or web address] RIVAS/Dictated by: Yanick Mantilla MD @ 02/14/2025 11:40:00 AM (Electronically Signed)
== END 2025-02-14 10:34 | disposition home or self-care (01) ==
LOC: MAMMO 10:33
PROVIDERS: PCP Family Medicine; Visit Provider Obstetrics & Gynecology
DX: N63.20 Unspecified lump in the left breast, unspecified quadrant (principal); R92.333 Mammographic heterogeneous density, bilateral breasts
CPT/HCPCS: 76642; 77065; G0279

== ENCOUNTER 2025-04-09 10:20 | Outpatient (CLI) | payer OTHER, SELFPAY | END 2025-04-09 10:21 | disposition home or self-care (01) | LOC: NFLDREF 04-16 01:38 | PROVIDERS: PCP Family Medicine; Referring Provider Family Medicine; Visit Provider Family Medicine | DX: Z00.00 Encounter for general adult medical examination without abnormal findings (principal); Z13.6 Encounter for screening for cardiovascular disorders | CPT/HCPCS: 80053; 80061 ==